=== PATIENT | female | born 1995 | race American Indian/Alaskan Native ===

== ENCOUNTER 2017-02-09 17:59 | Outpatient (CLI) | payer OTHER ==
[2017-02-09] MEDS ORDERED: LACTATED RINGERS 1,000 ML IV ONE (20:00)
[2017-02-09 22:49] VITALS: BP 139/84
[2017-02-09 23:14] LABS: Urine Drugs of Abuse Note Disclamer
== END 2017-02-09 21:35 | disposition home or self-care (01) ==
LOC: TRG 17:59
PROVIDERS: ATTEND Obstetrics & Gynecology
DX: O47.1 False labor at or after 37 completed weeks of gestation (principal); Z3A.38 38 weeks gestation of pregnancy
CPT/HCPCS: 59025; 80307; 96360; J7120